=== PATIENT | male | born 1930 | race Two or more races ===

== ENCOUNTER 2017-04-08 06:10 | Day surgery (SDC) | payer OTHER ==
[2017-04-08] MEDS ORDERED: IV LACTATED RINGERS SOLUTION 1,000 ML BAG IV ONE (06:11)
[2017-04-08] MEDS ORDERED: BALANCED SALT IRRIG SOLN COMB1 500 ML, GENTAMICIN SULFATE INJ 4 MG, EPINEPHRINE-PF 1:10... IO ONE ×3 (07:00)
[2017-04-08] MEDS ORDERED: FLURBIPROFEN 0.03% OPHT DROP 2.5 ML BOTTLE ONE (07:05)
[2017-04-08] MEDS ORDERED: PHENYLEPHRINE 2.5% OPHT DROP 2 ML BOTTLE ONE (07:06)
[2017-04-08] MEDS ORDERED: TROPICAMIDE 1% OPHT DROP 3 ML BOTTLE ONE (07:06)
[2017-04-08] MEDS ORDERED: CIPROFLOXACIN 0.3% OPHT DROP 2.5 ML BOTTLE ONE (07:06)
[2017-04-08] MEDS ORDERED: CYCLOPENTOLATE 1% OPHT DROP 2 ML BOTTLE ONE (07:06)
[2017-04-08 07:23] LABS: BASOPHILS % (AUTO) 0.7 % (0.0-2.0); EOSINOPHILS # (AUTO) 0.3 K/uL (0.0-0.7); EOSINOPHILS % (AUTO) 4.5 % (0.0-7.0); HEMATOCRIT 41.6 % (36.7-47.1); HEMOGLOBIN 14.2 g/dL (12.5-16.3); LYMPHOCYTES # (AUTO) 1.6 K/uL (20.0-40.0); LYMPHOCYTES % (AUTO) 25.5 % (20.5-51.5); MEAN CORPUSCULAR HEMOGLOBIN 29.9 uug (23.8-33.4); MEAN CORPUSCULAR HGB CONC 34 g/dL (32.5-36.3); MEAN CORPUSCULAR VOLUME 87.5 fL (73.0-96.2); MONOCYTES # (AUTO) 0.6 K/uL (2.0-10.0); MONOCYTES % (AUTO) 9.3 % (0.0-11.0); NEUTROPHILS # (AUTO) 3.9 K/uL (1.8-8.9); PLATELET COUNT (AUTO) 221 K/uL (152-348); RED BLOOD CELL COUNT(AUTO) 4.76 MIL/uL (4.06-5.63); WHITE BLOOD COUNT (AUTO) 6.4 K/uL (3.6-10.2)
[2017-04-08 07:25] LABS: CARBON DIOXIDE 29 mmol/L (21-32); CHLORIDE 107 mmol/L (98-107); CREATININE 0.8 mg/dL (0.6-1.3); GLUCOSE 101 mg/dL (74-106); POTASSIUM 4.1 mmol/L (3.5-5.1); UREA NITROGEN, BLOOD 15 mg/dL (7-18)
[2017-04-08] MEDS ORDERED: LIDOCAINE-MPF 2% 5 ML VIAL ONE (07:44)
[2017-04-08] MEDS ORDERED: MOXIFLOXACIN HCL 3 ML OPHT DROPS ONE (07:44)
[2017-04-08] MEDS ORDERED: BUPIVACAINE PF 0.5% 30 ML VIAL ONE (07:45)
[2017-04-08] MEDS ORDERED: ACETYLCHOLINE CHLORIDE 1% OPHT 1 EA KIT ONE (07:45)
[2017-04-08] MEDS ORDERED: TETRACAINE HCL 0.5% OPHT DROP 2 ML BOTTLE ONE (07:45)
[2017-04-08] MEDS ORDERED: EPINEPHRINE 1 MG/1 ML AMP ONE (07:45)
[2017-04-08] MEDS ORDERED: TIMOLOL MALEATE 0.5% OPHT DROP 5 ML BOTTLE ONE (07:45)
[2017-04-08] MEDS ORDERED: BALANCED SALT IRRIG SOLN COMB2 15 ML IRRIG.SOLN ONE (07:45)
[2017-04-08] MEDS ORDERED: LIDOCAINE HCL-MPF 1% 5 ML VIAL ONE (07:45)
[2017-04-08] MEDS ORDERED: NEO/POLYMYX B/DEXAME OPHT OINT 3.5 GM TUBE ONE (07:45)
[2017-04-08] MEDS ORDERED: HYALURONATE SODIUM 8.5 MG/0.85 ML DISP.SYRIN ONE (07:46)
[2017-04-08] MEDS ORDERED: HYALURONIDASE,OVINE 200 UNITS/ML VIAL ONE (07:46)
[2017-04-08] MEDS ORDERED: HYALURONATE SODIUM 12.8 MG/0.8 ML DISP.SYRIN ONE ×2 (07:46→09:16)
[2017-04-08] MEDS ORDERED: FENTANYL CITRATE 100 MCG/2 ML AMPUL ONE (08:21)
[2017-04-08] MEDS ORDERED: BALANCED SALT IRRIG SOLN COMB1 500 ML ONE (09:13)
== END 2017-04-08 10:30 | disposition home or self-care (01) ==
LOC: DS 06:10
PROVIDERS: ATTEND Ophthalmology
DX: H26.8 Other specified cataract (principal); I10 Essential (primary) hypertension; M81.0 Age-related osteoporosis without current pathological fracture; E78.5 Hyperlipidemia, unspecified; M47.814 Spondylosis without myelopathy or radiculopathy, thoracic region; Z79.899 Other long term (current) drug therapy; Z85.51 Personal history of malignant neoplasm of bladder
CPT/HCPCS: 36415; 71045; 85025; A4663; J0171; J1580; J3010; J3471; J3490; J7120; J7321; V2632